=== PATIENT | female | born 1935 | race Caucasian/White ===

== ENCOUNTER 2019-12-17 06:00 | Outpatient (RCR) | payer MEDICARE, OTHER, SELFPAY | END 2020-01-05 23:59 | disposition home or self-care (01) | LOC: MPT 06:00 | PROVIDERS: Family Provider Nurse Practitioner Family; PCP Nurse Practitioner Family; Referring Provider Family Medicine; Visit Provider Family Medicine | DX: M25.552 Pain in left hip (principal) | CPT/HCPCS: 97110; 97116; 97140; 97161 ==

== ENCOUNTER → 2019-12-28 13:02 | Outpatient (BNVA) | payer MEDICARE, OTHER, SELFPAY | PROVIDERS: Family Provider Nurse Practitioner Family; PCP Nurse Practitioner Family; Visit Provider Emergency Medicine | DX: N94.9 Unspecified condition associated with female genital organs and menstrual cycle (principal); R30.0 Dysuria | CPT/HCPCS: 81003 ==

== ENCOUNTER 2020-01-06 06:00 | Outpatient (RCR) | payer MEDICARE, OTHER, SELFPAY | END 2020-02-05 23:59 | disposition home or self-care (01) | LOC: MPT 06:00 | PROVIDERS: Family Provider Nurse Practitioner Family; PCP Family Medicine; Referring Provider Family Medicine; Visit Provider Family Medicine | DX: M70.62 Trochanteric bursitis, left hip (principal) | CPT/HCPCS: 97110; 97140 ==

== ENCOUNTER → 2020-01-10 11:32 | Outpatient (BNVA) | payer MEDICARE, OTHER, SELFPAY | PROVIDERS: Family Provider Nurse Practitioner Family; PCP Nurse Practitioner Family; Referring Provider Family Medicine; Visit Provider Specialist | DX: M25.552 Pain in left hip (principal); M16.12 Unilateral primary osteoarthritis, left hip | CPT/HCPCS: 73502 ==

== ENCOUNTER → 2020-01-17 10:14 | Outpatient (BNVA) | payer MEDICARE, OTHER, SELFPAY | PROVIDERS: Family Provider Nurse Practitioner Family; PCP Family Medicine; Referring Provider Specialist; Visit Provider Anesthesiology Pain Medicine | DX: M47.816 Spondylosis without myelopathy or radiculopathy, lumbar region (principal); M16.12 Unilateral primary osteoarthritis, left hip; M70.62 Trochanteric bursitis, left hip; Y93.9 Activity, unspecified; M62.830 Muscle spasm of back | CPT/HCPCS: 99203; 99204 ==

== ENCOUNTER 2020-01-29 10:56 | Outpatient (CLI) | payer MEDICARE, OTHER, SELFPAY ==
--- NOTE | 2020-01-29 11:07 | XR_ITS ---
WS: [id number] LUMBAR SPINE: 5 VIEWS TECHNIQUE: AP, obliques, lateral and L5-S1 spot. HISTORY: LBP COMPARISON: None available. Normal lumbar alignment. No fractures. Disc spaces are maintained. Mild facet joint arthritis at L4-5 and L5-S1. No significant narrowing of the foramen. No loss of disc space or vertebral body height. SI joints are symmetric bilaterally. No soft tissue abnormalities. Bilateral iliac arterial stents extend into the distal aorta. XR/XR lumbar spine min 4V 99132 IMPRESSION: 1. No lumbar spine fracture. 2. Mild facet joint arthritis at L4-5 and L5-S1. 3. Iliac and aortic stent grafts.
== END 2020-01-29 10:57 | disposition home or self-care (01) ==
PROVIDERS: Family Provider Nurse Practitioner Family; PCP Family Medicine; Visit Provider Anesthesiology Pain Medicine
DX: M47.816 Spondylosis without myelopathy or radiculopathy, lumbar region (principal)
CPT/HCPCS: 72114

== ENCOUNTER → 2020-02-05 12:44 | Outpatient (BNVA) | payer MEDICARE, OTHER, SELFPAY | PROVIDERS: Family Provider Nurse Practitioner Family; PCP Family Medicine; Visit Provider Anesthesiology Pain Medicine | DX: M16.12 Unilateral primary osteoarthritis, left hip (principal); M70.62 Trochanteric bursitis, left hip; Y93.9 Activity, unspecified; M54.9 Dorsalgia, unspecified | CPT/HCPCS: 20610; 77003; J1030; J2001; J3490 ==

== ENCOUNTER → 2020-02-29 13:01 | Outpatient (BNVA) | payer MEDICARE, OTHER, SELFPAY | PROVIDERS: Family Provider Nurse Practitioner Family; PCP Family Medicine; Visit Provider Emergency Medicine | DX: N89.8 Other specified noninflammatory disorders of vagina (principal); L28.0 Lichen simplex chronicus | CPT/HCPCS: 80053; 81000 ==

== ENCOUNTER → 2020-03-06 08:25 | Outpatient (BNVA) | payer MEDICARE, OTHER, SELFPAY | PROVIDERS: Family Provider Nurse Practitioner Family; PCP Family Medicine; Visit Provider Anesthesiology Pain Medicine | DX: M54.16 Radiculopathy, lumbar region (principal); M47.816 Spondylosis without myelopathy or radiculopathy, lumbar region; M54.9 Dorsalgia, unspecified; M70.62 Trochanteric bursitis, left hip; M16.12 Unilateral primary osteoarthritis, left hip; M19.90 Unspecified osteoarthritis, unspecified site; M62.830 Muscle spasm of back; Y93.9 Activity, unspecified | CPT/HCPCS: 99213 ==

== ENCOUNTER 2020-03-19 13:08 | Outpatient (CLI) | payer MEDICARE, OTHER, SELFPAY ==
--- NOTE | 2020-03-19 13:45 | CT_ITS ---
WS: [id number] CT LUMBAR SPINE TECHNIQUE: Noncontrast CT of the lumbar spine with coronal and sagittal reformatted images. CLINICAL INFORMATION: radicular pain COMPARISON: None. DLP: 1987.[address] scans at [facility] use at least one of these dose optimization techniques: automat ed exposure control; mA and/or kV adjustment per patient size (includes targeted exams where dose is matched to clinical indication); or iterative reconstruction. FINDINGS: Mild lumbar curve convex left. No acute compression fractures. Mild annular bulging L3-L5. No high-gr emanuel central canal stenosis. Prior aortic endograft repair with biiliac extension. L1-L2: Small left foraminal protrusion impinges the exiting left L1 nerve root with mild to moderate left foraminal narrowing. L2-L3: Mild annular bulging. Slight effacement of ventral thecal sac. Slight narrowing of the subarti cular recess bilaterally. Mild left and no significant right foraminal narrowing. Mild facet arthropa thy. L3-L4: Mild annular bulging with mild central canal stenosis. Slight narrowing of the subarticular re cess bilaterally. Mild left foraminal narrowing. Moderate facet arthropathy. Ligament flavum hypertro phy. L4-L5: Mild disc bulging with slight effacement of ventral thecal sac. Moderate to advanced facet art hropathy. Mild central canal stenosis and narrowing of the subarticular recess bilaterally. Mild righ t greater than left foraminal narrowing. L5-S1: Mild disc bulging with slight effacement of ventral thecal sac. Mild right greater than left f oraminal narrowing. Visualized pelvic bony structures: Normal. Paravertebral soft tissues: Normal. CT/CT lumbar spine wo con* [id number] IMPRESSION: 1. Mild lumbar curve. No acute compression. No high-grade central canal stenos is. 2. Mild central canal narrowing L3-L4 and L4-L5 worse L4-L5 due to disc bulgin g with facet arthropathy and ligament flavum hypertrophy. 3. Tiny shallow central protrusion L5-S1 with slight contact of the S1 nerve r oots without significant impingement. 4. Moderate facet arthropathy worse at L3-L5. 5. Small left foraminal protrusion impinges the exiting left L1 nerve root wit h mild to moderate left foraminal narrowing. 6. Mild annular bulging L2-3 with narrowing of the left L2-3 subarticular rece ss and mild left foraminal narrowing.
== END 2020-03-19 13:09 | disposition home or self-care (01) ==
LOC: RADWPI 13:14
PROVIDERS: Family Provider Nurse Practitioner Family; PCP Family Medicine; Visit Provider Anesthesiology Pain Medicine
DX: M54.16 Radiculopathy, lumbar region (principal); M48.061 Spinal stenosis, lumbar region without neurogenic claudication; M47.816 Spondylosis without myelopathy or radiculopathy, lumbar region; M51.27 Other intervertebral disc displacement, lumbosacral region
CPT/HCPCS: 72131

== ENCOUNTER → 2020-04-03 12:17 | Outpatient (BNVA) | payer MEDICARE, OTHER, SELFPAY | PROVIDERS: Family Provider Nurse Practitioner Family; PCP Family Medicine; Visit Provider Family Medicine | DX: I10 Essential (primary) hypertension (principal); I73.9 Peripheral vascular disease, unspecified | CPT/HCPCS: 80053; 80061 ==

== ENCOUNTER → 2020-04-10 09:36 | Outpatient (BNVA) | payer MEDICARE, OTHER, SELFPAY | PROVIDERS: Family Provider Nurse Practitioner Family; PCP Family Medicine; Visit Provider Anesthesiology Pain Medicine | DX: M54.16 Radiculopathy, lumbar region (principal); M47.816 Spondylosis without myelopathy or radiculopathy, lumbar region; M54.9 Dorsalgia, unspecified; M16.12 Unilateral primary osteoarthritis, left hip; M70.62 Trochanteric bursitis, left hip; M89.49 Other hypertrophic osteoarthropathy, multiple sites; M62.830 Muscle spasm of back | CPT/HCPCS: 99213; 99215 ==

== ENCOUNTER → 2020-04-15 12:16 | Outpatient (BNVA) | payer MEDICARE, OTHER, SELFPAY | PROVIDERS: Family Provider Nurse Practitioner Family; PCP Family Medicine; Visit Provider Anesthesiology Pain Medicine | DX: M54.16 Radiculopathy, lumbar region (principal); M54.9 Dorsalgia, unspecified | CPT/HCPCS: 64483; 64484; J1040; J2001; J3490 ==

== ENCOUNTER → 2020-04-29 13:23 | Outpatient (BNVA) | payer MEDICARE, OTHER, SELFPAY | PROVIDERS: Family Provider Nurse Practitioner Family; PCP Family Medicine; Visit Provider Anesthesiology Pain Medicine | DX: M54.16 Radiculopathy, lumbar region (principal); M54.9 Dorsalgia, unspecified; Z79.891 Long term (current) use of opiate analgesic | CPT/HCPCS: 64483; 64484; J1040; J2001; J3490 ==

== ENCOUNTER → 2020-05-13 09:54 | Outpatient (BNVA) | payer MEDICARE, OTHER, SELFPAY | PROVIDERS: Family Provider Nurse Practitioner Family; PCP Family Medicine; Visit Provider Anesthesiology Pain Medicine | DX: M54.9 Dorsalgia, unspecified (principal); M47.816 Spondylosis without myelopathy or radiculopathy, lumbar region; M54.16 Radiculopathy, lumbar region; M62.830 Muscle spasm of back; M16.12 Unilateral primary osteoarthritis, left hip; M70.62 Trochanteric bursitis, left hip; M89.49 Other hypertrophic osteoarthropathy, multiple sites; Z79.891 Long term (current) use of opiate analgesic | CPT/HCPCS: 99213; 99214 ==

== ENCOUNTER → 2020-05-27 14:22 | Outpatient (BNVA) | payer MEDICARE, OTHER, SELFPAY | PROVIDERS: Family Provider Nurse Practitioner Family; PCP Family Medicine; Visit Provider Anesthesiology Pain Medicine | DX: M54.16 Radiculopathy, lumbar region (principal); M54.9 Dorsalgia, unspecified; Z79.891 Long term (current) use of opiate analgesic | CPT/HCPCS: 64483; 64484; J1040; J3490 ==

== ENCOUNTER → 2020-06-10 10:11 | Outpatient (BNVA) | payer MEDICARE, OTHER, SELFPAY | PROVIDERS: Family Provider Nurse Practitioner Family; PCP Family Medicine; Visit Provider Anesthesiology Pain Medicine | DX: M47.816 Spondylosis without myelopathy or radiculopathy, lumbar region (principal); M54.16 Radiculopathy, lumbar region; M54.9 Dorsalgia, unspecified; M16.12 Unilateral primary osteoarthritis, left hip; M70.62 Trochanteric bursitis, left hip; M89.49 Other hypertrophic osteoarthropathy, multiple sites; M62.830 Muscle spasm of back; Y93.9 Activity, unspecified | CPT/HCPCS: 99213 ==

== ENCOUNTER → 2020-08-25 13:08 | Outpatient (BNVA) | payer MEDICARE, OTHER, SELFPAY | PROVIDERS: Family Provider Nurse Practitioner Family; PCP Family Medicine; Visit Provider Anesthesiology Pain Medicine | DX: M54.16 Radiculopathy, lumbar region (principal); M54.9 Dorsalgia, unspecified; Z79.891 Long term (current) use of opiate analgesic | CPT/HCPCS: 64483; 64484 ==

== ENCOUNTER → 2021-02-10 09:49 | Outpatient (BNVA) | payer MEDICARE, OTHER, SELFPAY | PROVIDERS: Family Provider Nurse Practitioner Family; PCP Family Medicine; Visit Provider Family Medicine | DX: N39.42 Incontinence without sensory awareness (principal); F32.0 Major depressive disorder, single episode, mild; B37.2 Candidiasis of skin and nail; I10 Essential (primary) hypertension; K21.9 Gastro-esophageal reflux disease without esophagitis; I73.9 Peripheral vascular disease, unspecified; R53.83 Other fatigue; G56.01 Carpal tunnel syndrome, right upper limb; M70.62 Trochanteric bursitis, left hip; M16.12 Unilateral primary osteoarthritis, left hip; F43.21 Adjustment disorder with depressed mood; M89.49 Other hypertrophic osteoarthropathy, multiple sites; E78.2 Mixed hyperlipidemia | CPT/HCPCS: 80053; 82607; 82652; 84443; 85025 ==

== ENCOUNTER 2021-02-16 06:00 | Outpatient (RCR) | payer MEDICARE, OTHER, SELFPAY | END 2021-03-06 23:59 | disposition home or self-care (01) | LOC: MPT 06:00 | PROVIDERS: Family Provider Nurse Practitioner Family; PCP Family Medicine; Referring Provider Family Medicine; Visit Provider Family Medicine | DX: R32 Unspecified urinary incontinence (principal) | CPT/HCPCS: 97110; 97161; 97530 ==

== ENCOUNTER → 2021-03-02 10:35 | Outpatient (BNVA) | payer MEDICARE, OTHER, SELFPAY | PROVIDERS: Family Provider Nurse Practitioner Family; PCP Family Medicine; Referring Provider Family Medicine; Visit Provider Specialist | DX: G56.01 Carpal tunnel syndrome, right upper limb (principal); M25.531 Pain in right wrist | CPT/HCPCS: 73110 ==

== ENCOUNTER 2021-03-07 06:00 | Outpatient (RCR) | payer MEDICARE, OTHER, SELFPAY | END 2021-04-06 23:59 | disposition home or self-care (01) | LOC: MPT 06:00 | PROVIDERS: PCP Family Medicine; Referring Provider Family Medicine; Visit Provider Family Medicine | DX: R32 Unspecified urinary incontinence (principal) | CPT/HCPCS: 97110; 97530 ==

== ENCOUNTER → 2021-03-16 14:35 | Outpatient (BNVA) | payer MEDICARE, OTHER, SELFPAY | PROVIDERS: Family Provider Nurse Practitioner Family; PCP Family Medicine; Visit Provider Family Medicine | DX: E03.9 Hypothyroidism, unspecified (principal); R79.89 Other specified abnormal findings of blood chemistry; F32.0 Major depressive disorder, single episode, mild; F43.21 Adjustment disorder with depressed mood; R20.0 Anesthesia of skin; R20.2 Paresthesia of skin | CPT/HCPCS: 83516; 84439; 84443; 84481 ==

== ENCOUNTER → 2021-04-14 08:02 | Outpatient (BNVA) | payer MEDICARE, OTHER, SELFPAY | PROVIDERS: PCP Family Medicine; Referring Provider Family Medicine; Visit Provider Specialist | DX: G56.01 Carpal tunnel syndrome, right upper limb (principal); Z87.891 Personal history of nicotine dependence | CPT/HCPCS: 95885; 95908 ==

== ENCOUNTER → 2021-04-21 10:24 | Outpatient (BNVA) | payer MEDICARE, OTHER, SELFPAY | PROVIDERS: PCP Family Medicine; Visit Provider Orthopaedic Surgery | DX: M48.061 Spinal stenosis, lumbar region without neurogenic claudication (principal) | CPT/HCPCS: 72110 ==

== ENCOUNTER 2021-05-04 14:57 | Outpatient (CLI) | payer MEDICARE, OTHER, SELFPAY | END 2021-05-04 14:58 | disposition home or self-care (01) | LOC: SPT 15:00 | PROVIDERS: PCP Family Medicine; Visit Provider Specialist | DX: R32 Unspecified urinary incontinence (principal) | CPT/HCPCS: L3908 ==

== ENCOUNTER 2021-05-05 08:23 | Outpatient (CLI) | payer MEDICARE, OTHER, SELFPAY ==
--- NOTE | 2021-05-05 08:31 | IR_ITS ---
WS: [id number] LUMBAR MYELOGRAM HISTORY: M48.061 - Spinal stenosis, lumbar region COMPARISON: None available. FLUOROSCOPY TIME: 1.2 min minutes. Procedure, risks and complications were explained to the patient. Risks including bleeding, infection , headaches, allergic reaction and seizures. Consent has been obtained. With the patient in prone position the skin over the lumbar region is cleansed with ChloraPrep and an esthetized with lidocaine. 22-gauge spinal needle is inserted into the thecal sac at the appropriate level determined by fluoroscopy. Omnipaque 240; 12 ml is injected slowly under fluoroscopy with no co mplications. Needle bevel is perpendicular to the longitudinal fibers of the dura. Stylet is reinsert ed prior to removal of the needle. Patient tolerated the procedure well. Patient will proceed to CT f or further evaluation. Normal distention of the thecal sac with contrast. No significant stenosis or extrinsic defect noted upon the thecal sac. There is very slight narrowing of the central thecal sac at the L4-5 level. Mild facet joint arthritis at L4-5 and L5-S1. No fractures. Disc spaces are well preserved. Status post e ndovascular grafting of aorta with stents extending into the iliac arteries. 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 IR/IR myelogram sp lumbar [id number] IMPRESSION: 1. Uncomplicated lumbar myelogram. 2. Very slight narrowing of the thecal sac at the L4-5 level. 3. Facet joint arthritis is mild at L4-5 and L5-S1. 4. 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 Dilatation is just superior to the prior stent grafting.
--- NOTE | 2021-05-05 08:41 | CT_ITS ---
WS: [id number] CT MYELOGRAM LUMBAR SPINE HISTORY: M48.061 - Spinal stenosis, lumbar region without neuropathy. TECHNIQUE: Contiguous 2.5 mm axial imaging performed from T12 through the mid sacral level. Bone and soft tissue windows reviewed. Sagittal and coronal reformats are submitted and reviewed. DLP: 1827.[address] scans at [facility] use at least one of these dose optimization techniques: automat ed exposure control; mA and/or kV adjustment per patient size (includes targeted exams where dose is matched to clinical indication); or iterative reconstruction. COMPARISON: 03/19/2020 Good distention of the thecal sac with contrast. Conus tapers normally ends at L1. No fractures and t he disc spaces are well preserved. Very mild facet joint arthritis. No pars defects. L1-L2: Mild annular disc bulging and ligamentum flavum hypertrophy. Very mild narrowing of the forame n slightly greater on the LEFT with no high-grade stenosis. L2-L3: Mild annular disc bulging with ligamentum flavum hypertrophy and facet arthritis. Very mild fo raminal narrowing. L3-L4: Mild annular disc bulging with mild ligamentum flavum hypertrophy. Very mild LEFT foraminal na rrowing. L4-L5: Moderate annular disc bulging with ligamentum flavum hypertrophy and facet arthritis. There is very slight encroachment into the thecal sac and mild bilateral facet joint arthritis. Disc is causi ng mild encroachment upon the traversing L5 nerve roots. Very minimal foraminal narrowing. No high-gr emanuel stenosis. L5-S1: Mild annular disc bulging. There is [id number] LEFT foraminal stenosis. Disc is slightly contacting the exiting L5 nerve root on the LEFT. Mild bilateral facet joint arthritis. Patient is status post endovascular graft repair of the distal aorta with a graft extending into the iliac arteries bilaterally. CT/CT lumbar spine w con [id number] IMPRESSION: 1. No high-grade central or foraminal stenosis. 2. There is mild disc contact upon the LEFT L5 nerve root at L4-5 and the L5 n erve root L5-S1. Mild to moderate LEFT foraminal stenosis at L5-S1. 3. Otherwise very mild narrowing of the foramen as described above. 4. Very mild encroachment into the central thecal sac at L4-5 without signific ant stenosis.
[2021-05-05] MEDS: iohexol 240 mg/mL 50 mL Btl INTRATHECA (11:49)
== END 2021-05-05 08:24 | disposition home or self-care (01) ==
PROVIDERS: PCP Family Medicine; Visit Provider Orthopaedic Surgery
DX: M48.061 Spinal stenosis, lumbar region without neurogenic claudication (principal); M48.07 Spinal stenosis, lumbosacral region; I71.9 Aortic aneurysm of unspecified site, without rupture; M47.816 Spondylosis without myelopathy or radiculopathy, lumbar region; M47.817 Spondylosis without myelopathy or radiculopathy, lumbosacral region
CPT/HCPCS: 62304; 72120; 72132; Q9966

== ENCOUNTER → 2021-05-18 13:20 | Outpatient (BNVA) | payer MEDICARE, OTHER, SELFPAY | PROVIDERS: PCP Family Medicine; Referring Provider Specialist; Visit Provider Specialist | DX: G56.01 Carpal tunnel syndrome, right upper limb (principal); Z20.822 Contact with and (suspected) exposure to COVID-19 | CPT/HCPCS: 87635 ==

== ENCOUNTER 2021-05-22 06:01 | Day surgery (SDC) | payer MEDICARE, OTHER, SELFPAY ==
[2021-05-21 16:13] VITALS: BMI 33.3
[2021-05-22] VITALS (9 sets, daily range): BP systolic 167–212; BP diastolic 80–101; PULSE 80–94; RESP 16–25; TEMP 36.2–36.8; O2SAT 92–95
[2021-05-22] MEDS: CELEcoxib 200 mg Capsule 400 MG PO (06:31)
--- NOTE | 2021-05-22 06:39 | P.ANESASSM_ITS ---
Pre-Anesthetic Assessment Pre-Anesthetic Assessment: Height/Weight: Height 1.57 m Weight 82.554 kg Temp Pulse Resp BP Pulse Ox 98.2 F 93 18 212/100 95 05/22/21 06:19 05/22/21 06:19 05/22/21 06:19 05/22/21 06:19 05/22/21 06:19 Preop Diagnosis: Right carpal tunnel syndrome Proposed Procedure: Operation Date: 05/22/21 07:00 Proposed Procedures p right Carpal Tunnel Release [id number] g56.00(Right) - Christin Morrison MD Was Beta Anamaria taken within 24 hours: N/A Was Clonidine taken within 24 hours: N/A Last intake: Intake Last Liquid Date 05/21/21 Last Liquid Time 19:30 Last Solid Date 05/21/21 Last Solid Time 19:30 Social: Social History: No alcohol and No tobacco Exam: Pre-Anes Outpt Exam: alert, oriented x 3, clear to auscultation bila terally and regular rate & rhythm Airway: Submandibular: WNL Cervical ROM: WNL MP: 2 Dentition: False CV/HEM: CV/HEM: HTN and PVD Comments: Mild Mitral stenosis GI: GI: GERD Metabolic: Metabolic: Hyperlipidemia Musc/skel: Musc/skel: Lower Back Pain Neuropsych: Neuropsych: Depression Anesthetic Plan: ASA status: 3 Anesthesia: MAC and Regional (specify below) (Lashell delong) Risk of > 500 ml blood loss (7ml/kg in children): No PFSH Anesthesia PFSH: Medical History HTN (hypertension) Hyperlipidemia Lichen of skin PVD (peripheral vascular disease) Urine incontinence Valvular heart disease Surgical History S/P appendectomy S/P arterial stent Femoral Family History Sister Cancer Breast Social History Smoking and tobacco status: former smoker Alcohol intake: never Desire information about alcohol rehabilitation?: No Desire information about substance/drug rehabilitation?: No History of recent travel: No Current gender identity: Female Female Reproductive History: Spontaneous abortions: No Data Anesthesia Cardiac Studies: No Data to Display
[2021-05-22] MEDS: sodium chloride 0.9% 1,000 ML 30 ML IV (06:49)
[2021-05-22] MEDS: acetaminophen 1,000 MG/100 ML PIGGYBACK 400 MG IV (06:50)
--- NOTE | 2021-05-22 06:53 | P.HPUD_ITS ---
Surgery/Procedure H&P Update DATE OF PROCEDURE: May 22, 2021 DATE H&P PERFORMED: 05/04/21 H&P UPDATE INFORMATION: I have reviewed H&P completed within last 30 days, I have examined patient prior to procedure, No changes to prior documentation and H&P is in [facility] EMR on date indicated PREOP DIAGNOSIS: Right carpal tunnel syndrome PLANNED PROCEDURE: Operation Date: 05/22/21 07:00 Proposed Procedures p right Carpal Tunnel Release [id number] g56.00(Right) - Christin Morrison MD Related Problem List Diagnoses (1) Right carpal tunnel syndrome:
--- NOTE | 2021-05-22 06:55 | W.PM.OPSUD ---
Surgery/Procedure H&P Update DATE OF PROCEDURE: May 22, 2021 DATE H&P PERFORMED: 05/04/21 PREOP DIAGNOSIS: Right carpal tunnel syndrome PLANNED PROCEDURE: Operation Date: 05/22/21 07:00 Proposed Procedures p right Carpal Tunnel Release [id number] g56.00(Right) - Christin Morrison MD
[2021-05-22 07:07] LABS: Alanine Aminotransferase 11 U/L (0-33); Albumin Level 4.2 g/dL (3.5-5.2); Alkaline Phosphatase 125 IU/L (35-105); Blood Urea Nitrogen 17 mg/dL (8-23); Calcium 8.9 mg/dL (8.5-10.5); Carbon Dioxide 23 mmol/L (22-29); Chloride 107 mmol/L (98-107); Glucose 110 mg/dL (65-115); Osmolality Calculated 294 mOsm/kg (285-295); Sodium 141 mmol/L (136-145); Total Bilirubin 0.3 mg/dL (0.15-1.2); Total Protein 7.2 g/dL (6.6-8.7)
[2021-05-22 07:19] LABS: Anion Gap 15.5 (5-19); Aspartate Amino Transferase 23 U/L (0-32); Potassium 4.5 mmol/L (3.5-5.1)
--- NOTE | 2021-05-22 08:31 | PM.OP ---
Operative Report Date of procedure: May 22, 2021 Pre-op Diagnosis: Right carpal tunnel syndrome Post-op diagnosis: same Post-op Findings: Significant compression across the carpal canal with thickened transverse carpal ligament. Procedure Done: Right carpal tunnel release Implants: None Specimens removed/disposition: None Pathology: none sent Surgeon: Christin Morrison Senior Bioinformatics Specialist: None Anesthesia: General (Per LMA) Estimated blood loss (mL): 0 Tourniquet time (min): 25 Tourniquet time: At 250 mmHg IV fluids (mL): 500 Urine output (mL): 0 Urine output: No Rogel Complications: None Findings: Significant compression across the carpal canal from the thickened transverse carpal ligament. Condition: stable Disposition: PACU (Then to same-day surgery for discharge to home) Brief History: This 85-year-old woman presented with complaints of severe carpal tunnel like symptoms in the right upper extremity. This interferes with her activities of daily living and functional activities. After discussion, patient wished to proceed with carpal tunnel release. This was scheduled for her. Consents were signed, and questions were answered. Procedure: The patient was brought to the operating theater. The patient had a [place] block with MAC. The tourniquet was elevated to 250 mmHg for a total tourniquet time of 25 minutes. The patient was also given Ancef 2g, preoperatively. The arm was then prepped and draped with DuraPrep in usual fashion with the arm draped free. A surgical pause was performed. At the time, the surgical pause, we confirmed the site and side of surgery. We also confirmed the patient's identity, appropriate and timely administration of preoperative antibiotics and preoperative surgical markings. An incision was then made along the thenar crease. The incision crossed the wrist joint in a curvilinear fashion. Dissection continued through skin and soft tissues using a scalpel. The palmaris longus was identified along with the transverse carpal ligament. Each of these was released carefully to avoid injury to the median nerve. We were able to dissect gently into the carpal canal which was noted to be quite tight with significant compression across the median nerve. The nerve was visualized and was an hourglass shape. The canal was subsequently palpated to assure there was no bony encroachment upon the canal. There was a quite thickened fibrous tissue within the canal, and this was opened longitudinally as well. The canal was then palpated distally and proximally to assure that my small finger was passed easily without impingement. Finding this to be so, attention was directed to closure. The wound was irrigated with ropivacaine plain. It was then closed with 3-0 nylon in an interrupted mattress fashion. Sterile dressing was then placed consisting of Xeroform gauze, fluffed fluffs, sterile soft roll, a volar splint, and an Bruce wrap. The tourniquet was released after 25 minutes. There were no complications. There were no specimens. The procedure was well tolerated. Plan is the patient will be discharged home. Associated Problem List Diagnoses (1) Right carpal tunnel syndrome:
--- NOTE | 2021-05-22 15:50 | ANE.PACU2 ---
Inpatient post-anesthesia follow up: Airway intact: Yes Vital signs: Temperature 97.1 F Pulse Rate 80 Respiratory Rate 18 Blood Pressure 167/80 Pulse Oximetry 94 Oxygen Delivery Me thod Room Air Oxygen Flow Rate 6 Fraction of Inspir ed Oxygen Hydration adequate: Yes Nausea and vomiting: No Pain level: 1 Mental status: Baseline
== END 2021-05-22 09:10 | disposition home or self-care (01) ==
PROVIDERS: PCP Family Medicine; Visit Provider Specialist
PROC: (CPT 64721; principal; 2021-05-22 07:00)
DX: G56.01 Carpal tunnel syndrome, right upper limb (principal); E78.5 Hyperlipidemia, unspecified; I10 Essential (primary) hypertension; K21.9 Gastro-esophageal reflux disease without esophagitis; Z87.891 Personal history of nicotine dependence; Z79.82 Long term (current) use of aspirin
CPT/HCPCS: 64721; 36415; 80053; 96365; J0690; J2405; J2704; J3010; J3490; J7030

== ENCOUNTER → 2021-05-27 13:42 | Outpatient (BNVA) | payer MEDICARE, OTHER, SELFPAY | PROVIDERS: PCP Family Medicine; Referring Provider Orthopaedic Surgery; Visit Provider Orthopaedic Surgery | DX: Z01.812 Encounter for preprocedural laboratory examination (principal); Z20.822 Contact with and (suspected) exposure to COVID-19 | CPT/HCPCS: 87635 ==

== ENCOUNTER 2021-06-03 10:13 | Day surgery (SDC) | payer MEDICARE, OTHER, SELFPAY ==
[2021-06-01 11:36] VITALS: BMI 33.3
--- NOTE | 2021-06-01 11:40 | ECG_ITS ---
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 Measurements Intervals [place] Rate: 73 P: 23 W[place]: 229 QRS: 2 QRSD: 86 T: 25 QT: 389 QTc: 431 Interpretive Statements SINUS RHYTHM WITH FIRST DEGREE AV BLOCK LOW QRS VOLTAGE IN PRECORDIAL LEADS [QRS DEFLECTION < 1.0 mV IN CHEST LEADS] INFERIOR MYOCARDIAL INFARCTION [40+ ms Q WAVE AND/OR ST/T ABNORMALITY IN II/aVF], PROBABLY OLD No previous ECG available for comparison Electronically Signed On 06-01-2021 22:28:58 CDT by Amaris Quan M.D. [email or web address]pan[facility] centerRet[email or web address]/[id number]
--- NOTE | 2021-06-01 12:04 | PC.NURSE ---
1200- EKG done and showed to Dr Menjivar. He says it is ok to proceed with surgery
--- NOTE | 2021-06-01 12:23 | ANES.PREANE2 ---
Pre-Anesthetic Assessment Pre-Anesthetic Assessment: Height/Weight: Height 1.57 m Weight 82.554 kg Preop Diagnosis: Right carpal tunnel syndrome Proposed Procedure: Operation Date: 06/03/21 11:55 Proposed Procedures p MIS left L4/5 decompression 70420 M48.061(Left) - Jovani Rush, DO Was Beta Anamaria taken within 24 hours: N/A Was Clonidine taken within 24 hours: N/A Social: Social History: No alcohol and No tobacco Exam: Pre-Anes Outpt Exam: alert, oriented x 3, clear to auscultation bilaterally and regular rate & rhythm Airway: Submandibular: WNL Cervical ROM: WNL MP: 2 Dentition: False CV/HEM: CV/HEM: HTN, Murmur (mild mitral stenosis) and PVD GI: GI: GERD Metabolic: Metabolic: Hyperlipidemia Musc/skel: Musc/skel: Lower Back Pain Neuropsych: Neuropsych: Anxiety and Depression Anesthetic Plan: ASA status: 3 Anesthesia: General Risk of > 500 ml blood loss (7ml/kg in children): No PFSH Anesthesia PFSH: Medical History HTN (hypertension) Hyperlipidemia Lichen of skin PVD (peripheral vascular disease) Urine incontinence Valvular heart disease Surgical History S/P appendectomy S/P arterial stent Femoral Family History Sister Cancer Breast Social History Smoking and tobacco status: former smoker Alcohol intake: never Desire information about alcohol rehabilitation?: No Desire information about substance/drug rehabilitation?: No History of recent travel: No Current gender identity: Female Female Reproductive History: Spontaneous abortions: No Data Anesthesia Cardiac Studies: No Data to Display
[2021-06-03] VITALS (9 sets, daily range): BP systolic 114–196; BP diastolic 74–102; PULSE 93–99; RESP 13–19; TEMP 36.4–36.8; O2SAT 94–98
--- NOTE | 2021-06-03 | SCC_ITS ---
Procedure Done: 1. Left L4/5 laminectomy with partial facetectomy 10.9 seconds of fluoroscopic guidance, for a cumulative dose of 3.70 mGy, was provided to Dr. Rush by the radiology department. C-arm images of the lumbar spine were saved for the patient's permanent record. [facility]
--- NOTE | 2021-06-03 | XR_ITS ---
WS: [id number] XR lumbar spine 1V [id number] REASON FOR EXAM: L4/L5 decompression FINDINGS: Surgical device overlying the right side of the L4-L5 interspace from posterior approach. XR/XR lumbar spine 1V 64887 IMPRESSION: Intraoperative localization of L4-L5 interspace.
[2021-06-03] MEDS: sodium chloride 0.9% 1,000 ML 30 ML IV (10:40)
--- NOTE | 2021-06-03 10:57 | W.PM.OPSUD ---
Surgery/Procedure H&P Update DATE OF PROCEDURE: June 03, 2021 DATE H&P PERFORMED: 05/14/21 H&P UPDATE INFORMATION: I have reviewed H&P completed within last 30 days, I have examined patient prior to procedure and No changes to prior documentation PREOP DIAGNOSIS: lumbar stenosis PLANNED PROCEDURE: Operation Date: 06/03/21 11:45 Proposed Procedures p MIS left L4/5 decompression 13044 M48.061(Left) - Jovani Rush DO
--- NOTE | 2021-06-03 12:09 | PM.OP ---
Operative Report Date of procedure: June 03, 2021 Pre-op Diagnosis: lumbar stenosis Post-op diagnosis: same Procedure Done: 1. Left L4/5 laminectomy with partial facetectomy Surgeon: Jovani Rush Anesthesia: General Estimated blood loss (mL): 5 Disposition: PACU Procedure: 1. Left L4/5 laminectomy with partial facetectomy Patient is brought to the operative suite. After undergoing anesthesia they are placed in the supine position. All areas of impingement are well padded. Patient is then prepped and draped in the normal sterile fashion. A skin incision is made over the L4/5 level. This is confirmed under c-arm guidance. A series of dilators are passed and the tubular retractor is docked on the L4 lamina. A bovie is used to clear the soft tissue off the lamina and the L 4/5 facet joint. A high speed marianna is then used to perform the laminectomy and take down the medial aspect of the L 4/5 facet joint. A kerrison rongeure was then used to take down the remaining lamina and smooth the edge of the laminectomy up to the point where the ligamentum flavum attaches. Attention was then brought to the medial aspect of the facet joint. The remaining medial aspect of the superior and inferior aspect of the facet joint were taken down with the kerrison from the pedicle of L4 to L 5. The facet joint had significant hypertrophy. Attention was then brought to the Ligamentum Flavum. The ligament was taken down from the lamina of L4 to L5 and out medially to the remaining facet joint. The ligament was very thick. The dura was then exposed. The dura was in good repair. The L4 nerve was then traced with a curette out the L4/5 foramen and found to be adequately decompressed. The L5 nerve was traced with a curette around the L5 pedicle. The lateral recess was opened with a kerrison helping to further decompress the L5 nerve. Wound is then irrigated copiously with saline and surgiflo is used to stop any bleeding. The tubular retractor is removed and the wound is closed with vicryl and monocryl suture. Glue is then used to protect the wound. A sterile dressing is then placed. Patient was then placed in the supine position and transferred to the PACU in stable condition.
--- NOTE | 2021-06-03 12:53 | P.ANESUD_ITS ---
Pre-Anesthetic Update Pre-Anesthetic Assessment: Date of Surgery/Procedure: 06/03/21 Preop Maria Fernanda gnosis: lumbar stenosis Proposed Procedure: Operation Date: 06/03/21 11:45 Proposed Procedures p MIS left L4/5 decompression 08585 M48.061(Left) - Jovani Rush, DO Any changes to Pre-Anesthetic Assessment?: No Last Intake: Intake Last Liquid Date 06/02/21 Last Liquid Time 20:00 Last Solid Date 06/02/21 Last Solid Time 19:00 Vitals: Temperature 98.1 F 06/03/21 12:51 Temperature Source Temporal Artery S can 06/03/21 12:51 Pulse Rate 96 06/03/21 12:51 Respiratory Rate 18 06/03/21 12:51 Blood Pressure 114/75 06/03/21 12:51 Blood Pressure Abi n 88 06/03/21 12:51 Pulse Oximetry 98 06/03/21 12:51 Oxygen Delivery Me thod 06/03/21 12:51 Oxygen Flow Rate 3 06/03/21 12:40 Exam: Pre-Anes Outpt Exam: alert, oriented x 3, clear to auscultation bilat erally and regular rate & rhythm Cardiac Studies: No Data to Display
--- NOTE | 2021-06-03 14:11 | ANE.PACU2 ---
Inpatient post-anesthesia follow up: Airway intact: Yes Vital signs: Temperature 97.7 F Pulse Rate 95 Respiratory Rate 18 Blood Pressure 150/74 Pulse Oximetry 95 Oxygen Delivery Me thod Room Air Oxygen Flow Rate 3 Fraction of Inspir ed Oxygen Hydration adequate: Yes Nausea and vomiting: No Pain level: 2 Mental status: Baseline
== END 2021-06-03 13:42 | disposition home or self-care (01) ==
PROVIDERS: PCP Family Medicine; Visit Provider Orthopaedic Surgery
PROC: (CPT 63005; principal; 2021-06-03 11:35)
DX: M48.061 Spinal stenosis, lumbar region without neurogenic claudication (principal); I10 Essential (primary) hypertension; K21.9 Gastro-esophageal reflux disease without esophagitis; E78.5 Hyperlipidemia, unspecified; F41.9 Anxiety disorder, unspecified; F32.9 Major depressive disorder, single episode, unspecified; Z87.891 Personal history of nicotine dependence; Z79.82 Long term (current) use of aspirin
CPT/HCPCS: 63047; 72020; 76000; 93005; J0690; J1100; J1170; J2405; J2704; J3010; J3490; J7030

== ENCOUNTER → 2021-07-22 14:00 | Outpatient (BNVA) | payer MEDICARE, OTHER, SELFPAY | PROVIDERS: PCP Family Medicine; Visit Provider Family Medicine | DX: I10 Essential (primary) hypertension (principal); E78.2 Mixed hyperlipidemia; J44.9 Chronic obstructive pulmonary disease, unspecified; K21.9 Gastro-esophageal reflux disease without esophagitis; I73.9 Peripheral vascular disease, unspecified; Z98.890 Other specified postprocedural states; S72.001A Fracture of unspecified part of neck of right femur, initial encounter for closed fracture; S72.001S Fracture of unspecified part of neck of right femur, sequela; R79.89 Other specified abnormal findings of blood chemistry; N39.42 Incontinence without sensory awareness; X58.XXXA Exposure to other specified factors, initial encounter | CPT/HCPCS: 80053; 80061; 85025 ==

== ENCOUNTER → 2021-08-11 12:57 | Outpatient (BNVA) | payer MEDICARE, OTHER, SELFPAY | PROVIDERS: PCP Family Medicine; Visit Provider Nurse Practitioner Family | DX: E78.2 Mixed hyperlipidemia (principal); R42 Dizziness and giddiness; I10 Essential (primary) hypertension; I73.9 Peripheral vascular disease, unspecified; R79.89 Other specified abnormal findings of blood chemistry | CPT/HCPCS: 36416; 82962; 83516; 84439; 84443; 84480 ==

== ENCOUNTER → 2021-09-28 13:00 | Outpatient (BNVA) | payer MEDICARE, OTHER, SELFPAY | PROVIDERS: PCP Family Medicine; Visit Provider Internal Medicine | DX: E05.90 Thyrotoxicosis, unspecified without thyrotoxic crisis or storm (principal); R79.89 Other specified abnormal findings of blood chemistry; F41.9 Anxiety disorder, unspecified; S72.009A Fracture of unspecified part of neck of unspecified femur, initial encounter for closed fracture; X58.XXXA Exposure to other specified factors, initial encounter; Z98.890 Other specified postprocedural states | CPT/HCPCS: 99214 ==

== ENCOUNTER → 2021-10-07 11:31 | Outpatient (BNVA) | payer MEDICARE, OTHER, SELFPAY | PROVIDERS: PCP Family Medicine; Visit Provider Internal Medicine | DX: E05.90 Thyrotoxicosis, unspecified without thyrotoxic crisis or storm (principal) | CPT/HCPCS: 84439; 84443; 84480 ==

== ENCOUNTER 2021-11-17 13:53 | Outpatient (CLI) | payer MEDICARE, OTHER, SELFPAY ==
--- NOTE | 2021-11-17 13:56 | XR_ITS ---
WS: [id number] DEXA (DUAL ENERGY X-RAY ABSORPTIOMETRY) Bone mineral density was performed using a [employer] machine. HISTORY: Z78.0 - Asymptomatic menopausal state COMPARISON: None available. Lumbar spine BMD (L1-L4): 1.011 T score: -1.3 Z score: 0.3 Total hip BMD: Left: 0.695. T score: -2.5 Z score: -0.4 LEFT forearm: 0.806. T score: -0.8 Z score: 2.4 10 year probability of a major osteoporotic fracture is 24%. XR/XR DEXA axial skeleton* 94452 IMPRESSION: OSTEOPOROSIS based upon the WHO classification for females.
== END 2021-11-17 13:54 | disposition home or self-care (01) ==
PROVIDERS: PCP Family Medicine; Visit Provider Internal Medicine
DX: Z78.0 Asymptomatic menopausal state (principal); M81.0 Age-related osteoporosis without current pathological fracture
CPT/HCPCS: 77080

== ENCOUNTER → 2021-12-01 10:05 | Outpatient (BNVA) | payer MEDICARE, OTHER, SELFPAY | PROVIDERS: PCP Family Medicine; Visit Provider Family Medicine | DX: I10 Essential (primary) hypertension (principal); K21.9 Gastro-esophageal reflux disease without esophagitis; I73.9 Peripheral vascular disease, unspecified; M25.551 Pain in right hip; M81.0 Age-related osteoporosis without current pathological fracture; E05.90 Thyrotoxicosis, unspecified without thyrotoxic crisis or storm; R79.89 Other specified abnormal findings of blood chemistry; S72.141A Displaced intertrochanteric fracture of right femur, initial encounter for closed fracture; X58.XXXA Exposure to other specified factors, initial encounter; Z79.899 Other long term (current) drug therapy | CPT/HCPCS: 73502; 80053; 82652; 84439; 84443; 84480 ==

== ENCOUNTER → 2021-12-21 10:53 | Outpatient (BNVA) | payer MEDICARE, OTHER, SELFPAY | PROVIDERS: PCP Family Medicine; Visit Provider Internal Medicine | DX: F32.0 Major depressive disorder, single episode, mild (principal); F41.9 Anxiety disorder, unspecified; R79.89 Other specified abnormal findings of blood chemistry; M81.0 Age-related osteoporosis without current pathological fracture; S72.009A Fracture of unspecified part of neck of unspecified femur, initial encounter for closed fracture; X58.XXXA Exposure to other specified factors, initial encounter; Z98.890 Other specified postprocedural states | CPT/HCPCS: 99214 ==